=== PATIENT | female | born 1955 | race Hispanic/Latino ===

== ENCOUNTER 2018-07-07 20:09 | Emergency (ER) | payer BC ==
--- NOTE | 2018-07-07 22:13 | ED PDOC ---
History of Present Illness History of Present Illness: Patient is a 63 year old female with no past medical history who presents for evaluation of worsening dry cough x2 weeks. Patient reports that recently she has been experiencing chest pain exclusively with coughing episodes and notes that she has been getting winded going up the stairs. Patient has been taking OTC Mucinex, last dose yesterday, without relief. Patient reports that she also has been experiencing upper back pain which she attributes to frequent coughing. No history of PNA, bronchitis, or COPD. Patient denies fever, leg pain/swelling, prolonged immobility, recent surgery, tobacco abuse, history of DVT/PE, family history of blood clots, abdominal pain, N/V/D, diaphoresis, arm pain, jaw pain, headache, dizziness, syncope, blood in stool/sputum, sick contacts, recent tra carlito. PMD: Carrie Delatorre HPI: Influenza Time Seen by Provider: 07/07/18 21:45 Chief Complaint: Cough, Cold, Congestion Chief Complaint (Provider): Cough History Per: Patient, Family (daughter at bedside) Exam Limitations: no limitations Have you had recent travel within the past 21 days to any of: No Onset/Duration Of Symptoms: Days (x2 weeks) Symptoms include: cough, chest pain (with coughing), difficulty breathing Sick Contacts (Context): None Past Medical History Reviewed: Historical Data, Nursing Documentation, Vital Signs Vital Signs: Last Vital Signs Temp 98.3 F 07/07/18 21:40 Pulse 85 07/07/18 21:40 Resp 18 07/07/18 21:40 BP 122/72 07/07/18 21:40 Pulse Ox 98 07/07/18 21:40 - Medical History PMH: No Chronic Diseases - Surgical History Surgical History: No Surg Hx - Family History Family History: States: Unknown Family Hx - Living Arrangements Living Arrangements: With Family - Social History Current smoker - smoking cessation education provided: No Alcohol: Social Drugs: Denies - Immunization History Hx Influenza Vaccination: No Hx Pneumococcal Vaccination: No - Home Medications Home Medications: Ambulatory Orders Medication Instructions Recorded Albuterol Sulfate [Ventolin Hfa] 1 puff IH Q4 PRN #1 unit 07/07/18 Meloxicam [Mobic] 15 mg PO DAILY PRN #10 tab 07/07/18 RX: Azithromycin [Z-Daniel] 250 mg PO DAILY #6 tab 07/07/18 RX: Promethazine DM [Phenergan DM 5 ml PO Q6 PRN #150 ml 07/07/18 Syrup] - Allergies Allergies/Adverse Reactions: Allergies Allergy/AdvReac Type Severity Reaction Status Date / Time No Known Allergies Allergy Verified 07/07/18 21:39 Review of Systems ROS Statement: Except As Marked, All Systems Reviewed And Found Negative Cardiovascular: Positive for: Chest Pain Respiratory: Positive for: Cough, Shortness of Breath Physical Exam - Reviewed Nursing Documentation Reviewed: Yes Vital Signs Reviewed: Yes - Physical Exam Comments: GENERALIZED APPEARANCE: Patient is awake, alert, oriented x3 in no acute distress. (+) bronchospastic, dry cough SKIN: Warm, dry (-) rash (-) diaphoresis. EYES: (-) conjunctival pallor. ENMT: Mucous membranes moist. Airway patent, (-) stridor. TMs: nonbulging and nonerythematous. Pharynx: clear, uvula midline (-) erythema (-) exudate. NECK:Supple, FROM (-) tenderness, (-) stiffness, (-) lymphadenopathy, (-) JVD. CHEST AND RESPIRATORY: (-) use of accessory muscles, (-) rales (+) scattered r honchi, (-) wheezes; breath sounds equal bilaterally. Respirations nonlabored, speaking in broken sentences due to cough. HEART AND CARDIOVASCULAR: (-) irregularity ABDOMEN AND GI: Soft; (-) distention, (-) tenderness, (-) palpable pulsatile mass. EXTREMITIES: (-) deformity; (-) calf tenderness, (-) edema, (+) distal pulses NEURO AND PSYCH: Mental status as above. Cranial nerves grossly intact; strength symmetric. Gait: steady. Speech: clear. (-) facial asymmetry Medical Decision Making Medical Decision Makin Initial Impression: cough, rule out pneumonia Plan: -IV access -CBC -CMP -BNP -Troponin -CXR 2 views -EKG -Promethazine DM 5mg PO -Duoneb INH 3mg -Re-evaluation 2249 EKG: NSR @ 83bpm (-) ST elevation, QTc [id number] CXR: No infiltrate, no acute disease as read by Caroline EMMANUEL 2335 CBC with no leukocytosis. CMP slight elevation of LFTs. BNP and Troponin unremarkable. Azithromycin 500mg PO ordered. On re-evaluation, patient reports improvement of symptoms. Cough noticeably improved. Patient speaking in full sentences. Patient and daughter feel comfortable going home. Patient remains AAOx3, in no acute distress. Respirations nonlabored, no evidence of respiratory distress. Vitals stable. Lab/Diagnostic results d/w the patient in great detail. Diagnosis of cough, bronchitis, respiratory tract infection d/w the patient. Based on history, exam and diagnostic results, plan will be for outpatient follow up with PMD. Patient instructed to follow-up with pmd / referral provided / the clinic in 1- 2 days without fail. Advised to take medication as prescribed. Return to the emergency room at any time for any new or worsening symptoms. Patient states she fully agrees with and understands discharge instructions. States that she agrees with the plan and disposition. Verbalized and repeated discharge instructions and plan. I have given the patient opportunity to ask any additional questions. - Laboratory Results Result Diagrams: 07/07/18 23:05 07/07/18 23:05 - ECG O2 Sat by Pulse Oximetry: 98 (RA) Pulse Ox Interpretation: Normal Disposition - Clinical Impression Clinical Impression: Cough, Bronchitis, Respiratory tract infection - Patient ED Disposition Is Patient to be Admitted: No Counseled Patient/Family Regarding: Studies Performed, Diagnosis, Need For Followup, Rx Given - Disposition Referrals: Carrie Delatorre MD [Medical Doctor] - Disposition: Routine/Home Disposition Time: 23:45 Condition: STABLE Additional Instructions: The emergency medical care you received today was directed at your acute symptoms. If you were prescribed any medication, please fill it and take as directed. It may take several days for your symptoms to resolve. Return to the Emergency Department if your symptoms worsen, do not improve, or if you have any other problems. Please contact your doctor in 2 days for re-evaluation and follow up / or call one of the physicians/clinics you have been referred to that are listed on the Patient Visit Information form that is included in your discharge packet. Bring any paperwork you were given at discharge with you along with any medications you are taking to your follow up visit. Our treatment cannot replace ongoing medical care by a primary care provider (PCP) outside of the emergency d epartment. Prescriptions: Albuterol Sulfate [Ventolin Hfa] 1 puff IH Q4 PRN #1 unit PRN Reason: Shortness Of Breath RX: Azithromycin [Z-Daniel] 250 mg PO DAILY #6 tab Meloxicam [Mobic] 15 mg PO DAILY PRN #10 tab PRN Reason: Pain, Moderate (4-7) RX: Promethazine DM [Phenergan DM Syrup] 5 ml PO Q6 PRN #150 ml PRN Reason: Cough Instructions: Cough in Adults, Acute Bronchitis, Bacterial Upper Respiratory Infection, Adult, Shortness of Breath (Dyspnea) Forms: [employer] (Yoruba) Print Language: CAMEROONIAN - POA Present On Arrival: None Results - Lab Results Lab Results: 07/07/18 07/07/18 23:05 23:05 WBC 7.6 RBC 4.24 Hgb 12.5 Hct 37.8 MCV 89.3 MCH 29.4 MCHC 32.9 L RDW 13.2 Plt Count 286 MPV 8.7 Neut % (Auto) 67.9 Lymph % (Auto) 20.7 [place] % (Auto) 8.9 Eos % (Auto) 1.6 Baso % (Auto) 0.9 Neut # (Auto) 5.2 Lymph # (Auto) 1.6 [place] # (Auto) 0.7 Eos # (Auto) 0.1 Baso # (Auto) 0.1 Sodium 140 Potassium 4.2 Chloride 100 Carbon Dioxide 27 Anion Gap 17 BUN 15 Creatinine 0.5 L Est GFR ( Amer) > 60 Est GFR (Non-Af Amer) > 60 Random Glucose 147 H Calcium 9.7 Total Bilirubin 0.6 AST 53 H ALT 53 H Alkaline Phosphatase 109 Troponin I < 0.0120 NT-Pro-B Natriuret Pep 126 Total Protein 8.0 Albumin 4.2 Globulin 3.8 Albumin/Globulin Ratio 1.1
[2018-07-07] MEDS ORDERED: Promethazine DM 6.25 mg-15 mg/5 ml Syrup PO STA (22:14)
[2018-07-07] MEDS ORDERED: Albuterol-Ipratrop 3 mg / 0.5 (3 ml) UD INH STA (22:14)
[2018-07-07] MEDS ORDERED: Albuterol-Ipratrop 3 mg / 0.5 (3 ml) UD ONE (22:34)
[2018-07-07 23:15] LABS: BASO # 0.1 K/uL (0.0-0.2); BASO % 0.9 % (0.0-2.0); EOS # 0.1 K/uL (0.0-0.7); EOS % 1.6 % (0.0-4.0); HEMOGLOBIN 12.5 g/dL (12.0-16.0); LYMPH # 1.6 K/uL (1.0-4.3); LYMPH % 20.7 % (20.0-40.0); MEAN CELL VOLUME 89.3 fl (81.0-99.0); MEAN CORPUSCULAR HEMOGLOBIN 29.4 pg (27.0-31.0); MEAN CORPUSCULAR HGB CONC 32.9 g/dL (33.0-37.0); MEAN PLATELET VOLUME 8.7 fl (7.2-11.7); MONO # 0.7 K/uL (0.0-0.8); MONO % 8.9 % (0.0-10.0); NEUT # 5.2 K/uL (1.8-7.0); NEUT % 67.9 % (50.0-75.0); NRBC % 0.1 % (0.0-0.0); RBC 4.24 Mil/uL (3.80-5.20); RED CELL DISTRIBUTION WIDTH 13.2 % (11.5-14.5); WHITE BLOOD COUNT 7.6 K/uL (4.8-10.8)
[2018-07-07 23:25] LABS: ALB/GLOB RATIO 1.1 (1.0-2.1); ALBUMIN 4.2 g/dL (3.5-5.0); ALT/SGPT 53 U/L (9-52); AST/SGOT 53 U/L (14-36); BLOOD UREA NITROGEN 15 mg/dl (7-17); CALCIUM 9.7 mg/dL (8.4-10.2); GFR NON-AFRICAN AMERICAN > 60
[2018-07-07 23:36] LABS: B-TYPE NATRIURETIC PEPTIDE 126 pg/ml (0-900)
[2018-07-07 23:52] VITALS: BP 121/71; PULSE 82; RESP 20; TEMP 98.1
[2018-07-08 00:19] VITALS: O2SAT 98
--- NOTE | 2018-07-08 11:51 | CARD ---
APPROVED REPORT Date of service: 07/07/2018 EKG Measurement Heart [id number] <Conclusion> Normal sinus rhythm Normal ECG
--- NOTE | 2018-07-08 15:09 | RAD ---
Date of service: 07/07/2018 HISTORY: cough, sob x2 weeks COMPARISON: No prior. TECHNIQUE: Chest PA and lateral FINDINGS: LUNGS: No active pulmonary disease. PLEURA: No significant pleural effusion identified. No pneumothorax apparent. CARDIOVASCULAR: No aortic atherosclerotic calcification present. No radiographic findings to suggest acute or significant cardiovascular disease. No pulmonary vascular congestion. OSSEOUS STRUCTURES: No significant abnormalities. VISUALIZED UPPER ABDOMEN: Normal. OTHER FINDINGS: None. IMPRESSION: No active disease.
== END 2018-07-08 00:08 | disposition home or self-care (01) ==
LOC: H.ER 20:09
DX: R05 Cough (principal); J06.9 Acute upper respiratory infection, unspecified; J40 Bronchitis, not specified as acute or chronic